=== PATIENT | female | born 1990 | race Caucasian/White ===

== ENCOUNTER 2019-07-02 13:54 | Emergency (ER) | payer OTHER ==
[~2019-07-02] VITALS: Ht 160 cm; Wt 65.8 kg
[2019-07-02 14:01] VITALS: BP 121/91
--- NOTE | 2019-07-02 14:07 | NUR ---
PT AMBULATED TO BED 12.
--- NOTE | 2019-07-02 14:42 | NUR ---
luana castro pa at bedside pelvic exam; claudio rn chaperoned
--- NOTE | 2019-07-02 14:51 | NUR ---
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 I was at the bedside for entire examination. Patient tolerated procedure well. Patient assisted to position of comfort after examination. Specimens obtained and walked to lab. Pt advised she could change back into her clothes and wait for results. All questions answered.
--- NOTE | 2019-07-02 14:56 | NUR ---
PATIENT PRESENTS TO ED WITH C/O BL PELVIC CRAMPS X 1 DAY. MENSTRUAL CYCLE ENDED YESTERDAY 07/01/19. TODAY PT REPORTS SHARP LOWER ABD PAIN 7/10 WITH CRAMPING PELVIC PAIN WITH SOME BLOOD TINGED URINE. WHEN FURTHER ASKED, PT UNSURE IF BLOOD PRESENT IN URINE OR LIGHT VAGINAL BLEEDING. DENIES N/V/D, FEVER, BM CHANGES, UTI SYMPTOMS. SKIN IS PINK/WARM/DRY; AAOX4 WITH EVEN AND STEADY GAIT; PT DENIES ANY FEVER, CP, SOB, OR COUGH AT THIS TIME; PATIENT POSITIONED FOR COMFORT; HOB ELEVATED; BEDRAILS UP X2; BED DOWN IN LOWEST POSITION. HX-ASTHMA RX- NONE ALL- SULFA
[2019-07-02 15:16] LABS: APPEARANCE,URINE CLOUDY (CLEAR); BILIRUBIN,URINE NEGATIVE (NEGATIVE); BLOOD, URINE 3+ (NEGATIVE); COLOR,URINE YELLOW (YELLOW); LEUKOCYTE ESTERASE ,URINE 2+ (NEGATIVE); NITRITE, URINE NEGATIVE (NEGATIVE); UGLUCOSE NEGATIVE (NEGATIVE)
[2019-07-02 15:40] LABS: RBC,URINE TOO NUMEROUS TO COUN /HPF (0-5); WBC,URINE TOO MANY TO COUNT /HPF (0-5)
[2019-07-02 16:02] VITALS: BP 118/63
[2019-07-05 06:08] LABS: CHLAMYDIA TRACHOMATIS AMP DNA Negative (Negative)
--- NOTE | 2019-07-06 15:05 | NUR ---
Pt called and no answer. Urine results showed to Dr. Hand and pt will need to return to ER to receive a Rocephin injection and PO Azithromycin for treatment.
== END 2019-07-02 16:02 | disposition home or self-care (01) ==
LOC: MED 13:54
DX: N39.0 Urinary tract infection, site not specified (principal)
CPT/HCPCS: 36415; 81001; 81025; 87070; 87086; 87205; 87210; 87491; 99283